=== PATIENT | male | born 1985 | race Caucasian/White ===

== ENCOUNTER 2016-10-27 16:36 | Emergency (ER) | payer MEDICAID ==
[~2016-10-27] VITALS: Ht 180.3 cm; Wt 108.9 kg
[2016-10-27 16:54] VITALS: BP 157/77; PULSE 68; RESP 16; TEMP 98.3; O2SAT 99
--- NOTE | 2016-10-27 17:07 | NUR ---
Pt placed in room 2, for ekg, along with MD feldman. Endorsed care to Alcira PARSON
--- NOTE | 2016-10-27 17:15 | NUR ---
pt. to the ER AAOx4 c/o chest pain. As per pt. he has had chest pain for 2 weeks now, states that he had numbness in his back two weeks ago, he thought nothing of it, develops chest pain during movement 5/10 radiated to left upper back and middle back, as per pt. he lost weight by diet and exercising, not taking any meds currently, denies SOB, denies N/V/D, denies headaches, on cardiac cath rn
--- NOTE | 2016-10-27 17:30 | NUR ---
Dr. Myers at bedside examining the pt.
[2016-10-27 18:06] LABS: BASOPHILS # (AUTO) 0.1 K/uL (0.0-0.2); BASOPHILS % (AUTO) 0.5 % (0.0-2.0); EOSINOPHILS # (AUTO) 0.1 K/uL (0.0-0.4); EOSINOPHILS % (AUTO) 1.2 % (0.0-4.0); HEMATOCRIT 42.7 % (36-54); HEMOGLOBIN 14.5 g/dL (14.0-18.0); LYMPHOCYTES # (AUTO) 1.4 K/uL (1.0-5.5); LYMPHOCYTES % (AUTO) 13.5 % (20.5-51.5); MEAN CORPUSCULAR HEMOGLOBIN 28 pg (27-31); MEAN CORPUSCULAR HGB CONC 34 % (32-36); MEAN CORPUSCULAR VOLUME 83 fL (79.0-98.0); MONOCYTES # (AUTO) 0.6 K/uL (0.0-1.0); MONOCYTES % (AUTO) 5.9 % (1.7-9.3); NEUTROPHILS # (AUTO) 8.5 K/uL (1.8-7.7); NEUTROPHILS % (AUTO) 78.9 % (40.0-70.0); PLATELET COUNT (AUTO) 285 K/uL (130-430); RED BLOOD CELL COUNT(AUTO) 5.13 MIL/uL (4.2-6.2); RED CELL DISTRIBUTION WIDTH 13.9 % (9.0-15.0); WHITE BLOOD COUNT (AUTO) 10.7 K/uL (4.8-10.8)
[2016-10-27 18:15] LABS: CALCIUM 9.3 mg/dL (8.4-11.0); CREATININE 0.95 mg/dL (0.55-1.30)
[2016-10-27 18:20] LABS: ALBUMIN 4.6 g/dL (3.4-4.8); TOTAL BILIRUBIN 0.7 mg/dL (0.0-1.0); TOTAL PROTEIN, SERUM 8.4 g/dL (6.4-8.3)
--- NOTE | 2016-10-27 18:30 | NUR ---
pt. verbalizes comfort at this time, states that he is not experiencing any chest pain at this time
[2016-10-27 20:17] VITALS: BP 157/77; PULSE 68; RESP 16; TEMP 98.3; O2SAT 99
--- NOTE | 2016-10-27 20:17 | NUR ---
Patient given written and verbal discharge instructions and verbalizes understanding. ER MD Dr. Myers discussed with patient the results and treatment provided. Patient in stable condition. ID arm band removed. Patient educated on pain management and to follow up with PMD. Pain Scale 0/10. Opportunity for questions provided and answered.
== END 2016-10-27 20:17 | disposition home or self-care (01) ==
LOC: SED 16:36
DX: R07.9 Chest pain, unspecified (principal); M54.6 Pain in thoracic spine
CPT/HCPCS: 36415; 71010; 80053; 84484; 85025; 85379; 93005; 99285

== ENCOUNTER 2019-03-07 19:06 | Emergency (ER) | payer MEDICAID ==
[~2019-03-07] VITALS: Ht 180.3 cm; Wt 122.5 kg
[2019-03-07 19:10] VITALS: BP_SYST 155
[2019-03-07 20:38] LABS: BILIRUBIN,URINE NEGATIVE (NEGATIVE); BLOOD, URINE NEGATIVE (NEGATIVE); CLARITY/URINE CLEAR (CLEAR); COLOR,URINE YELLOW (YELLOW); GLUCOSE,URINE NEGATIVE (NEGATIVE); KETONES,URINE NEGATIVE (NEGATIVE); LEUKOCYTE ESTERASE ,URINE NEGATIVE (NEGATIVE); NITRITE, URINE NEGATIVE (NEGATIVE); PROTEIN URINE NEGATIVE (NEGATIVE); UROBILINOGEN,URINE 0.2 (0.2-1.0)
[2019-03-07 20:50] VITALS: BP_SYST 140
== END 2019-03-07 20:50 | disposition home or self-care (01) ==
LOC: SED 19:06
DX: N45.1 Epididymitis (principal); R03.0 Elevated blood-pressure reading, without diagnosis of hypertension
CPT/HCPCS: 81003; 99283

== ENCOUNTER 2019-07-26 17:13 | Emergency (ER) | payer MEDICAID ==
[~2019-07-26] VITALS: Ht 180.3 cm; Wt 122.5 kg
[2019-07-26 17:13] VITALS: BP_SYST 148
--- NOTE | 2019-07-26 17:13 | NUR ---
BROUGHT BACK TO BED #4 AND TRIAGED. REPORT GIVEN TO DURGA
--- NOTE | 2019-07-26 17:25 | NUR ---
Patientpresented to ER with diarrhea and abdominal pain. Patient A&Ox4, afebrile, skin pink and warm pain 5/10, nausea/emesis/diarrhea. patient states emesis x1 today with several episodes of diarrhea, self medicated with kaopektate. Patient had dark stool/diarrheax1 prompting ER visit. Patient denies other health hx.
--- NOTE | 2019-07-26 18:05 | NUR ---
ER Dr. Newsome at bedside examining patient.
[2019-07-26] MEDS ORDERED: KETOROLAC TROMETHAMINE 60 MG/2 ML VIAL IM ONE (18:15)
[2019-07-26] MEDS ORDERED: DIPHENOXYLATE HCL/ATROP SULF 2.5 MG TAB PO ONE (18:15)
--- NOTE | 2019-07-26 18:20 | NUR ---
Venipuncture at bedside
[2019-07-26 18:57] LABS: ALBUMIN 4.1 g/dL (3.4-4.8); CALCIUM 8.3 mg/dL (8.4-11.0); CREATININE 0.86 mg/dL (0.55-1.30); POTASSIUM 3.4 mmol/L (3.5-5.1); TOTAL BILIRUBIN 0.5 mg/dL (0.0-1.0)
[2019-07-26 18:59] LABS: BASOPHILS % (AUTO) 0.4 % (0.0-2.0); EOSINOPHILS # (AUTO) 0.2 K/uL (0.0-0.4); EOSINOPHILS % (AUTO) 1.4 % (0.0-4.0); HEMATOCRIT 40.8 % (36-54); HEMOGLOBIN 14.1 g/dL (14.0-18.0); LYMPHOCYTES # (AUTO) 1.4 K/uL (1.0-5.5); LYMPHOCYTES % (AUTO) 13.1 % (20.5-51.5); MEAN CORPUSCULAR HEMOGLOBIN 30 pg (27-31); MEAN CORPUSCULAR HGB CONC 35 % (32-36); MEAN CORPUSCULAR VOLUME 86 fL (79.0-98.0); MONOCYTES # (AUTO) 0.6 K/uL (0.0-1.0); NEUTROPHILS # (AUTO) 8.5 K/uL (1.8-7.7); NEUTROPHILS % (AUTO) 79.1 % (40.0-70.0); PLATELET COUNT (AUTO) 241 K/uL (130-430); RED BLOOD CELL COUNT(AUTO) 4.76 MIL/uL (4.2-6.2); RED CELL DISTRIBUTION WIDTH 14.3 % (9.0-15.0); WHITE BLOOD COUNT (AUTO) 10.7 K/uL (4.8-10.8)
[2019-07-26 19:20] VITALS: BP_SYST 148
--- NOTE | 2019-07-26 19:22 | NUR ---
Patient given written and verbal discharge instructions and verbalizes understanding. ER MD discussed with patient the results and treatment provided. Patient in stable condition. ID arm band removed. Rx of Lomotil given. Patient educated on pain management and to follow up with PMD. Pain Scale 0/10. Opportunity for questions provided and answered. Medication side effect fact sheet provided.
== END 2019-07-26 19:22 | disposition home or self-care (01) ==
LOC: SED 17:13
DX: K52.9 Noninfective gastroenteritis and colitis, unspecified (principal)
CPT/HCPCS: 36415; 80053; 83690; 85025; 96372; 99283; J1885